=== PATIENT | female | born 1955 | race American Indian/Alaskan Native ===

== ENCOUNTER 2017-08-29 07:26 | Outpatient (CLI) | payer OTHER ==
--- NOTE | 2017-08-29 13:27 | Mammography Report ---
Bilateral screening mammogram with tomosynthesis. Previous studies dated August 28, 2016. Findings: There are scattered fibroglandular densities bilaterally. A coarse calcification in the left breast is stable; there are no suspicious microcalcifications. No masses or architectural distortion. Impression: Stable benign findings. BI-RADS code: 2. Recommendation: Annual screening.
== END 2017-08-29 07:27 | disposition home or self-care (01) ==
LOC: MAMMO 07:26
PROVIDERS: ATTEND Internal Medicine
DX: Z12.31 Encounter for screening mammogram for malignant neoplasm of breast (principal)
CPT/HCPCS: 77063; G0202; 77067

== ENCOUNTER 2019-09-28 07:05 | Outpatient (CLI) | payer OTHER ==
--- NOTE | 2019-09-28 16:17 | Mammography Report ---
DIGITAL SCREENING MAMMOGRAM WITH CAD, 09/28/2019 INDICATION: Routine screening mammography. TECHNIQUE: Digital bilateral 2D mammography was obtained in the craniocaudal and mediolateral obliq ue projections. This examination was interpreted with the benefit of Computer-Aided Detection analysi s. COMPARISON: 09/22/2018 FINDINGS: Breast Density: The breasts are heterogeneously dense, which may obscure small masses. There is no evidence of dominant mass, suspicious calcifications or architectural distortion in eithe r breast. IMPRESSION: No mammographic evidence of malignancy. Follow up recommendation: Routine yearly BI-RADS Category 2: Benign. A "normal" or negative report should not discourage follow up or biopsy of a clinically significant f inding. A written summary of these findings will be mailed to the patient. The patient will be entered into a mammography reporting system which will generate a reminder letter for the patient's next appointmen t at the appropriate interval. The [employer] recommends yearly mammograms starting at age 40 and continuing as l sal as a woman is in good health. Breast MRI is recommended for women with an approximate 20-25% or greater lifetime risk of breast cancer, including women with a strong family history of breast or ova ida cancer or who have been treated for Hodgkin's disease. Signer Name: John Mancera MD Signed: 09/28/2019 4:12 PM Workstation Name: [id number]
== END 2019-09-28 07:06 | disposition home or self-care (01) ==
LOC: MAMMO 07:05
PROVIDERS: ATTEND Internal Medicine
DX: Z12.31 Encounter for screening mammogram for malignant neoplasm of breast (principal)
CPT/HCPCS: 77067

== ENCOUNTER 2020-09-29 07:13 | Outpatient (CLI) | payer BC ==
--- NOTE | 2020-09-29 13:10 | Mammography Report ---
DIGITAL SCREENING MAMMOGRAM WITH CAD, 09/29/2020 CLINICAL INFORMATION / INDICATION: Routine screening mammography. TECHNIQUE: Digital bilateral 2D mammography was obtained in the craniocaudal and mediolateral obliqu e projections. This examination was interpreted with the benefit of Computer-Aided Detection analysis . COMPARISON: 09/28/2019, 09/22/2018 FINDINGS: Breast Density: The breasts are heterogeneously dense, which may obscure small masses. No dominant mass, suspicious calcifications, or architectural distortion in either breast. Bilateral benign calcifications are unchanged. IMPRESSION: No mammographic evidence of malignancy. Follow up recommendation: Routine yearly BI-RADS Category 2: Benign. A "normal" or negative report should not discourage follow up or biopsy of a clinically significant f inding. A written summary of these findings will be mailed to the patient. The patient will be entered into a mammography reporting system which will generate a reminder letter for the patient's next appointmen t at the appropriate interval. The [employer] recommends yearly mammograms starting at age 40 and continuing as l sal as a woman is in good health. Breast MRI is recommended for women with an approximate 20-25% or greater lifetime risk of breast cancer, including women with a strong family history of breast or ova ida cancer or who have been treated for Hodgkin's disease. Signer Name: Rob Phillips MD Signed: 09/29/2020 1:05 PM Workstation Name: [id number]
== END 2020-09-29 07:14 | disposition home or self-care (01) ==
LOC: MAMMO 07:13
PROVIDERS: ATTEND Internal Medicine
DX: Z12.31 Encounter for screening mammogram for malignant neoplasm of breast (principal); N64.89 Other specified disorders of breast
CPT/HCPCS: 77067

== ENCOUNTER 2021-11-13 07:06 | Outpatient (CLI) | payer MEDICARE ==
--- NOTE | 2021-11-13 08:17 | Mammography Report ---
DIGITAL SCREENING MAMMOGRAM WITH CAD, 11/13/2021 CLINICAL INFORMATION / INDICATION: Routine screening mammography. MAMMOGRAM SCREENING TECHNIQUE: Digital bilateral 2D mammography was obtained in the craniocaudal and mediolateral obliqu e projections. This examination was interpreted with the benefit of Computer-Aided Detection analysis . COMPARISON: 05/08/2013 through 09/29/2020. FINDINGS: Breast Density: There are scattered areas of fibroglandular density. No dominant mass, suspicious calcifications, or architectural distortion in either breast. There are benign-appearing calcifications bilaterally, including minimal breast arterial calcificatio ns. IMPRESSION: No mammographic evidence of malignancy. Follow up recommendation: Routine yearly BI-RADS Category 2: BENIGN. A "normal" or negative report should not discourage follow up or biopsy of a clinically significant f inding. A written summary of these findings will be mailed to the patient. The patient will be entered into a mammography reporting system which will generate a reminder letter for the patient's next appointmen t at the appropriate interval. The [employer] recommends yearly mammograms starting at age 40 and continuing as l sal as a woman is in good health. Breast MRI is recommended for women with an approximate 20-25% or greater lifetime risk of breast cancer, including women with a strong family history of breast or ova ida cancer or who have been treated for Hodgkin's disease. Signer Name: Vasyl Diaz MD Signed: 11/13/2021 8:12 AM Workstation Name: [id number]
== END 2021-11-13 07:07 | disposition home or self-care (01) ==
LOC: MAMMO 07:06
PROVIDERS: ATTEND Internal Medicine
DX: Z12.31 Encounter for screening mammogram for malignant neoplasm of breast (principal); N64.89 Other specified disorders of breast
CPT/HCPCS: 77067